=== PATIENT | male | born 1955 | race Caucasian/White ===

== ENCOUNTER 2016-07-05 23:45 | Emergency (ER) | payer MEDICARE, OTHER ==
[~2016-07-05] VITALS: Ht 160 cm; Wt 94.8 kg
[~2016-07-05 23:45] MED LIST: TOPROL XL25 MG PO; ZESTRIL20 MG PO
[2016-07-06 00:44] VITALS: BP 163/97
--- NOTE | 2016-07-06 02:46 | NUR ---
Patient to bed 05.
--- NOTE | 2016-07-06 03:00 | NUR ---
Patient being evaluated by DR. HEBERT at bedside.
--- NOTE | 2016-07-06 03:11 | NUR ---
60Y/M PATIENT BIB DAUGHTER TO ED WITH C/O BLOOD SUGARS RUNNING IN THE 200'S AT HOME TODAY. PATIENT STATES NORMALLY IT GOES BACK DOWN TO NORMAL BUT NOT TONIGHT, WHICH IS WHAT CONCERNED HIM; SKIN IS PINK/WARM/DRY; AAOX4 WITH EVEN AND STEADY GAIT; LUNGS CLEAR BL; HR EVEN AND REGULAR; PT DENIES ANY FEVER, CP, SOB, OR COUGH AT THIS TIME; PATIENT STATES PAIN OF 0/10 AT THIS TIME; VSS; PATIENT POSITIONED FOR COMFORT; HOB ELEVATED; BEDRAILS UP X2; BED DOWN. ER MD MADE AWARE OF PT STATUS.
[2016-07-06 03:29] VITALS: BP 155/85
--- NOTE | 2016-07-06 03:30 | NUR ---
Patient discharged with v/s stable. Written and verbal after care instructions given and explained. Patient verbalized understanding. Ambulatory with steady gait. All questions addressed prior to discharge. Advised to follow up with PMD.
== END 2016-07-06 03:30 | disposition home or self-care (01) ==
LOC: MED 23:45
DX: R73.9 Hyperglycemia, unspecified (principal); I10 Essential (primary) hypertension